=== PATIENT | male | born 1975 | race African-American/Black ===

== ENCOUNTER 2016-11-19 16:23 | Inpatient (IN) | payer BC ==
[~2016-11-19] VITALS: Ht 175.3 cm; Wt 82.5 kg
[2016-11-19 18:31] LABS: UA SPECIFIC GRAVITY 1.015 (1.005-1.035); microscopic required? YES; urine erythrocyte TRACE (NEGATIVE)
[2016-11-19 18:36] LABS: BASOPHIL % 0.5 % (0-2); PLATELET COUNT 220 x10^3mcL (130-400); RED CELL DISTRIBUTION WIDTH 14.2 % (11.5-14.5)
[2016-11-19 18:44] LABS: AMPHETAMINE QUAL UR NONE DETECTED (NEG <=1000)
[2016-11-19 18:53] LABS: CALCIUM 8.7 mg/dL (8.5-10.1); CARBON DIOXIDE 30.3 mmol/L (21-32); CHLORIDE SERUM 104 mmol/L (98-107); CREATININE SERUM 0.9 mg/dL (0.7-1.3); GFR1 > 60 mL/min; GLUCOSE SERUM 86 mg/dL (74-106); POTASSIUM SERUM 4.4 mmol/L (3.5-5.1); SODIUM SERUM 141 mmol/L (136-145)
[2016-11-19 18:58] LABS: ALBUMIN 3.7 g/dL (3.4-5.0); ALKALINE PHOSPHATASE 56 U/L (46-116); ALT/SGPT 91 U/L (16-63); AMYLASE 46 U/L (25-115); AST/SGOT 99 U/L (15-37); BILIRUBIN TOTAL 1.4 mg/dL (0.20-1.00); LIPASE 102 IU/L (73-393); MAGNESIUM 1.9 mg/dL (1.8-2.4); TOTAL PROTEIN, SERUM 6.6 g/dL (6.4-8.2)
[2016-11-19 18:59] LABS: CHOLESTEROL 221 mg/dL (<200); HDL CHOLESTEROL 106 mg/dL (40-60)
[2016-11-19 20:29] LABS: T3 TOTAL 1.11 ng/mL
[2016-11-19 20:31] LABS: FREE T4 1.01 ng/dL (0.76-1.46); FREE THYROXINE INDEX 2.5 ug/dL (1.4-4.5); T4(THYROXINE) 6.3 ug/dL (4.7-13.3)
[2016-11-19 21:07] VITALS: BP 136/51
[2016-11-20 05:59] LABS: BASOPHIL % 0.4 % (0-2); PLATELET COUNT 201 x10^3mcL (130-400)
[2016-11-20 06:18] VITALS: BP 134/74
[2016-11-20 06:37] LABS: CALCIUM 8.8 mg/dL (8.5-10.1); CARBON DIOXIDE 26.7 mmol/L (21-32); CHLORIDE SERUM 105 mmol/L (98-107); CREATININE SERUM 0.9 mg/dL (0.7-1.3); GFR1 > 60 mL/min; GLUCOSE SERUM 92 mg/dL (74-106); POTASSIUM SERUM 3.9 mmol/L (3.5-5.1); SODIUM SERUM 142 mmol/L (136-145)
[2016-11-20 09:00] VITALS: BP 134/78
[2016-11-20 13:57] VITALS: BP 127/80
[2016-11-20 18:00] VITALS: BP 125/75
[2016-11-20 22:06] VITALS: BP 127/67
[2016-11-21 06:25] VITALS: BP 99/59
[2016-11-21 06:38] LABS: BASOPHIL % 0.7 % (0-2); PLATELET COUNT 212 x10^3mcL (130-400); RED CELL DISTRIBUTION WIDTH 13.6 % (11.5-14.5)
[2016-11-21 06:56] LABS: CALCIUM 8.6 mg/dL (8.5-10.1); CARBON DIOXIDE 27.2 mmol/L (21-32); CHLORIDE SERUM 107 mmol/L (98-107); CREATININE SERUM 0.9 mg/dL (0.7-1.3); GFR1 > 60 mL/min; GLUCOSE SERUM 89 mg/dL (74-106); PHOSPHOROUS 3.9 mg/dL (2.5-4.9); POTASSIUM SERUM 4.1 mmol/L (3.5-5.1); SODIUM SERUM 141 mmol/L (136-145)
[2016-11-21 08:09] VITALS: BP 123/83
[2016-11-21] MEDS ORDERED: LIPI10 PO (12:16)
[2016-11-21] MEDS ORDERED: FOL1 PO (12:17)
[2016-11-21] MEDS ORDERED: THI100 PO (12:17)
[2016-11-21] MEDS ORDERED: THERAGRAN-M1 TA4 PO (12:18)
[2016-11-21 12:21] VITALS: BP 123/83
[2016-11-21] MEDS ORDERED: LEXAPRO10 MG PO (13:10)
[2016-11-21] MEDS ORDERED: ATIVAN0.5 M1 PO (13:10)
[2016-11-21 13:26] VITALS: BP 123/77
== END 2016-11-21 14:53 | disposition home or self-care (01) | DRG 205 ==
LOC: ED 16:23 → DU 19:57
PROVIDERS: Emergency Medicine; ADMIT Family Medicine
DX: M94.0 Chondrocostal junction syndrome [Tietze] (principal); N17.0 Acute kidney failure with tubular necrosis; G92 Toxic encephalopathy; K21.9 Gastro-esophageal reflux disease without esophagitis; F12.10 Cannabis abuse, uncomplicated; F10.10 Alcohol abuse, uncomplicated; F14.10 Cocaine abuse, uncomplicated; R74.0 Nonspecific elevation of levels of transaminase and lactic acid dehydrogenase [LDH]; E78.5 Hyperlipidemia, unspecified; F17.210 Nicotine dependence, cigarettes, uncomplicated; E66.3 Overweight; Z68.26 Body mass index [BMI] 26.0-26.9, adult; Z83.3 Family history of diabetes mellitus; Z82.49 Family history of ischemic heart disease and other diseases of the circulatory system; F31.9 Bipolar disorder, unspecified; K72.90 Hepatic failure, unspecified without coma
CPT/HCPCS: 83880; 84439; 99406; G0480; J7030; Q0092